=== PATIENT | male | born 1970 | race African-American/Black ===

== ENCOUNTER 2020-11-13 10:11 | Emergency (ER) | payer OTHER, SELFPAY ==
[2020-11-13 10:22] VITALS: BP 150/87; PULSE 79; RESP 20; TEMP 36.6; O2SAT 99
[2020-11-13 11:13] LABS: Add Urine Microscopic? NO; Appearance Urine Clear (Clear); Bilirubin Urine Negative (Negative); Blood Urine Negative (Negative); Color Urine Yellow (Yellow); Glucose Urine UA Negative (Negative); Ketones Urine Negative (Negative); Leukocyte Esterase Ur Negative LEU/UL (Negative); Nitrate Urine Negative (Negative); Protein Urine Negative (Negative); Specific Grav Ur 1.018 (1.001-1.035); Urobilinogen Urine Negative mg/dL (<2.0)
--- NOTE | 2020-11-13 11:43 | ED.GENADULT ---
HPI - General Adult General Chief complaint: Back Pain/Injury Stated complaint: left side pain x 4 days Time Seen by Provider: 11/13/20 10:25 Source: patient Mode of arrival: ambulatory Limitations: no limitations History of Present Illness HPI narrative: Patient presents for complaint of right-sided back pain over the past 4 days that occurs when he rotates. He denies any direct trauma or injury. He denies any radiation into his groin or changes to his urination including dysuria or hematuria. Patient denies any other symptoms or concerns. Patient states he does not have any pain at this time however last night and this morning when he first woke up and started moving the pain increased. Patient states last night he took ibuprofen and noticed only minimal relief. Patient denies any other symptoms or concerns. Patient denies any history of kidney stone. Related Data Allergies Allergy/AdvReac Type Severity Reaction Status Date / Time No Known Allergies Allergy Unverified 03/18/19 23:38 Review of Systems Review of Systems: Narrative: CONSTITUTIONAL: Denies fever, chills, or sweats. EYES: Denies visual changes, redness, or discharge. ENT: Denies rhinorrhea, congestion, sore throat, or otalgia. CARDIOVASCULAR: Denies chest pain, palpitations, or edema. RESPIRATORY: Denies cough or dyspnea. GASTROINTESTINAL: Denies abdominal pain, nausea, vomiting, or diarrhea. GENITOURINARY: Denies dysuria or hematuria. SKIN: Denies rash or itching. MUSCULOSKELETAL: Reports right-sided back pain, denies joint pain, or myalgia. NEUROLOGIC: Denies headache, numbness, dizziness, or weakness. PSYCHIATRIC: Denies anxiety or depression. PMFSH Social History Social History Gender identity (if verbalized by the patient): Male Exam Narrative: Exam Narrative: GENERAL: Well-appearing, well-nourished, and in no acute distress. HEAD: Normocephalic, atraumatic. EYES: PERRLA and EOMI. ENT: Nares clear, no rhinorrhea or epistaxis. Mucous membranes moist. Oropharynx without tonsillar hypertrophy exudate or other lesions. Bilateral TMs pearly marin nonbulging NECK: Supple. No adenopathy or masses. Range of motion intact. CHEST: Clear to auscultation. No respiratory distress. No wheezes rales or rhonchi. No CVA tenderness. HEART: Regular rate and rhythm. BACK: No vertebral point tenderness. Pain elicited to right latissimus dorsi with rotation. EXTREMITIES: Normal range of motion. No edema. SKIN: Warm, dry, no rash. NEURO: No focal deficits. Alert and oriented x3. PSYCH: Normal mood and affect. Course Vital Signs Vital signs: Vital Signs Temperature 97.8 F 11/13/20 10:22 Pulse Rate 79 11/13/20 10:22 Respiratory Rate 20 11/13/20 10:22 Blood Pressure 150/87 H 11/13/20 10:22 Pulse Oximetry 99 11/13/20 10:22 Temperature 97.8 F 11/13/20 10:22 Pulse Rate 79 11/13/20 10:22 Respiratory Rate 20 11/13/20 10:22 Blood Pressure 150/87 H 11/13/20 10:22 Pulse Oximetry 99 11/13/20 10:22 Medical Decision Making MDM Narrative Medical decision making narrative: Patient symptoms appear to be musculoskeletal. Patient's urinalysis negative for any abnormal findings. Patient will be prescribed cyclobenzaprine for muscle spasming. Patient instructed to alternate warm and moist compresses. Patient instructed to follow-up with primary care within 1 week for reevaluation, sooner if there are any questions or concerns. Patient instructed that if he has any dysuria, hematuria, worsening or intense pain or any other emergent symptoms to return to the emergency department. Differential Diagnosis Differential Diagnosis: Kidney stone, fracture, sprain, strain Vital Signs Vital Signs: Vital Signs Temperature 97.8 F 11/13/20 10:22 Pulse Rate 79 11/13/20 10:22 Respiratory Rate 20 11/13/20 10:22 Blood Pressure 150/87 H 11/13/20 10:22 Pulse Oximetry 99 11/13/20 10:22 Temperature 97.8 F 11/13/20 10:22 Pulse Rat
[2020-11-13 11:54] VITALS: BP 148/62; PULSE 72; RESP 18; O2SAT 99
== END 2020-11-13 11:56 | disposition home or self-care (01) ==
PROVIDERS: Physician Assistant; Emergency Provider Emergency Medicine; PCP Family Medicine
DX: S29.012A Strain of muscle and tendon of back wall of thorax, initial encounter (principal); X58.XXXA Exposure to other specified factors, initial encounter
CPT/HCPCS: 81003; 99283

== ENCOUNTER 2024-04-16 14:26 | Emergency (ER) | payer OTHER, SELFPAY ==
--- NOTE | 2024-04-16 14:27 | ED.GENADULT ---
HPI - General Adult General Chief complaint: Extremity Problem,Nontraumatic Stated complaint: Left Leg Pain Time Seen by Provider: 04/16/24 14:38 Source: patient, RN notes reviewed and old records reviewed Mode of arrival: ambulatory Limitations: no limitations History of Present Illness HPI narrative: 53-year-old male presents to the [facility] with complaints of left lateral leg pain. Patient has no swelling. Denies any injury. No no redness. Walks with a normal gait Negative Homans sign States it started several days ago Related Data Home Medications Medication Instructions Recorded Confirmed amlodipine 10 mg tablet 10 mg PO DAILY 04/16/24 04/16/24 atorvastatin 40 mg tablet 40 mg PO DAILY 04/16/24 04/16/24 Allergies Allergy/AdvReac Type Severity Reaction Status Date / Time No Known Allergies Allergy Verified 04/16/24 14:27 Review of Systems Review of Systems: All systems reviewed & are unremarkable except as noted in HPI and below Constitutional: Constitutional: Reports no additional constitutional complaints Eyes: Eyes: Reports no additional eye complaints ENT: Reports system reviewed and no additional complaints, except as documented Cardiovascular: Cardiovascular: Reports no additional cardiovascular complaints, Denies chest pain and Denies dyspnea Respiratory: Respiratory: Reports no additional respiratory complaints, Denies chest congestion, Denies cough and Denies dyspnea Gastrointestinal: Gastrointestinal: Reports no additional gastrointestinal complaints, Denies abdominal pain, Denies nausea and Denies vomiting Musculoskeletal: Musculoskeletal: Reports as per HPI Integumentary/Breasts: Skin/Breast: Reports system reviewed and no additional complaints, except as docu Neurologic: Reports system reviewed and no additional complaints, except as documented Psychiatric: Psychiatric: Reports no additional psychiatric complaints Allergic/Immunologic: Allergic/Immunologic: Reports no additional allergic/immunologic complaints PMFSH Social History Social History Gender identity (if verbalized by the patient): Male Comments At the time of my signature, I reviewed and agree with the nursing past medical, surgical, social, and family history. There is no relevant family history pertinent to the patient complaint. Exam Const: General: cooperative, healthy appearing, comfortable, no acute distress, well developed, alert and well nourished Nutritional Appearance: well nourished Orientation/consciousness: patient oriented x3 Limitations: no limitations HENMT: Head: normal to inspection Ears: hearing grossly normal bilaterally and external ears normal Face/Nose/Sinus: Normal external nose present, Normal nares present, Normal nasal mucous membranes and turbinates present, normal facial exam and face symmetric Face and sinus: normal facial exam and face symmetric Eyes: General: appearance normal, both eyes and all related structures Alignment and Position: alignment normal Periorbital: periorbital findings normal Neck: Neck: normal visual inspection, full ROM, no lymphadenopathy and no meningeal signs Chest: Chest palpation & inspection: normal inspection of the chest Resp: Effort & Inspection: normal respiratory effort and able to speak in complete sentences Cardio: Rate: regular rate Skin: General skin exam: normal color and no rashes or lesions noted Lesions: no lesions Rashes: no rashes Trauma: no lacerations or abrasions Wounds: no wounds Neuro: General: patient oriented x3, gait normal, tone normal, moves all extremities and no meningeal signs Cranial nerves: Yes Equal, round and reactive pupils present Cognition (Neuro): normal cognition Speech: normal speech Gait exam (Neuro): Normal gait present Extrem: General: normal to inspection, full ROM, capillary refill normal and normal gait Left lower extremity: normal capillary re
[2024-04-16 14:38] VITALS: BP 152/78; PULSE 94; RESP 16; TEMP 36.7; O2SAT 98
== END 2024-04-16 14:50 | disposition home or self-care (01) ==
PROVIDERS: Emergency Provider Nurse Practitioner; PCP Family Medicine
DX: M79.662 Pain in left lower leg (principal); E78.00 Pure hypercholesterolemia, unspecified; I10 Essential (primary) hypertension
CPT/HCPCS: 99212; G0463